=== PATIENT | male | born 1970 | race Caucasian/White ===

== ENCOUNTER → 2018-07-23 11:35 | Outpatient (CLI) | payer OTHER, SELFPAY ==
--- NOTE | 2018-07-23 11:55 | RAD_ITS ---
STUDY: X-RAY - SOFT TISSUE NECK REASON FOR EXAM: Male, 47 years old. Sleep apnea. TECHNIQUE: AP and lateral view(s) of the neck were obtained. COMPARISON: None. FINDINGS: The airway measures 10.5 mm at the level of the base of the tongue and the prevertebral soft tissues at the level of the C2 vertebrae. Normal epiglottis. Normal visualized subglottic tracheal air column. Normal prevertebral soft tissue structures. Normal visualized osseous structures. The soft tissue structures are unremarkable. RAD/Neck for Soft Tissue IMPRESSION: The airway measures 10.5 mm from the base of the tongue to the anterior prevertebral soft tissue at the C2 level. Electronically Signed: Buzz Buckley MD at 9:18 EST Tel [phone], Service support ,
== END ==
PROVIDERS: Referring Provider Otolaryngology Otolaryngology/Facial Plastic Surgery; Visit Provider Otolaryngology Otolaryngology/Facial Plastic Surgery
DX: G47.30 Sleep apnea, unspecified (principal); R53.83 Other fatigue; R06.83 Snoring
CPT/HCPCS: 70360